=== PATIENT | female | born 1995 | race Asian ===

== ENCOUNTER 2017-06-14 21:38 | Inpatient (IN) | payer SELFPAY ==
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
[2017-06-14] MEDS ORDERED: Triple Antibiotic 0.94 gm Pkt TP STA (22:23)
[2017-06-14] MEDS ORDERED: Sodium Chloride 0.9% 1,000 ML IV ONE (22:27)
[2017-06-14] MEDS ORDERED: Triple Antibiotic 0.94 gm Pkt TP ONE (22:30)
[2017-06-14 22:56] LABS: ALB/GLOB RATIO 1.5 (1.0-1.8); ALBUMIN 4.3 gm/dL (3.7-5.3); ALKALINE PHOSPHATASE 63 U/L (34-104); AMYLASE SERUM 60 U/L (29-103); ANION GAP 12.2 (7.0-16.0); BILIRUBIN,TOTAL 0.5 mg/dL (0.3-1.0); BUN - UREA NITROGEN 13 mg/dL (7-25); CALCIUM SERUM 9.2 mg/dL (8.6-10.3); CARBON DIOXIDE 19.2 mEq/L (21.0-31.0); CHLORIDE 106 mEq/L (98-107); CREATININE - SERUM 0.7 mg/dL (0.6-1.2); GFR AFRICAN-AMERICAN > 60.0 ml/min (>90); GFR NON AFRICAN-AMERICAN > 60.0 ml/min; GLUCOSE 104 mg/dL (70-105); LIPASE 26 U/L (11-82); POTASSIUM SERUM 3.4 mEq/L (3.5-5.1); SGOT 18 U/L (13-39); SGPT/ALT 15 U/L (7-52); SODIUM SERUM 134 mEq/L (136-145); TOTAL PROTEIN,SERUM 7.1 gm/dL (6.0-8.3)
[2017-06-14 23:02] LABS: % BASOPHILS 1.6 % (0.0-2.0); % EOSINOPHILS 0.9 % (0.0-5.0); % LYMPHOCYTES 8.7 % (20.0-50.0); % MONOCYTES 5.5 % (2.0-10.0); % NEUTROPHILS 83.3 % (40.0-80.0); BASOPHILE ABSOLUTE 0.2 Th/cumm (0-0.2); EOSINOPHILE ABSOLUTE 0.1 Th/cmm (0.1-0.4); HEMATOCRIT 39.6 % (41.0-60); HEMOGLOBIN 13.3 gm/dL (12-16); LYMPHOCYTE ABSOLUTE 1.3 Th/cmm (1.5-3.0); MEAN CELL VOLUME 85.3 fl (81-100); MEAN CORPUSCULAR HEMOGLOBIN 28.6 pg (27.0-31.0); MEAN CORPUSCULAR HGB CONC 33.5 pg (28.0-36.0); MEAN PLATELET VOLUME 7.4 fl; MONOCYTE ABSOLUTE 0.8 Th/cmm (0.3-1.0); NEUTROPHILE ABSOLUTE 12.5 Th/cmm (1.8-8.0); PLATELET COUNT 371 Th/cmm (150-400); RED BLOOD COUNT 4.64 Mil/cmm (3.80-5.10); RED CELL DISTRIBUTION WIDTH 13.3 % (11.5-20.0)
[2017-06-14 23:03] LABS: INR 0.92 (0.5-1.4); PROTHROMBIN TIME (TEST) 9.6 SECONDS (9.5-11.5)
[2017-06-14 23:05] LABS: HCG QUANT < 1 mIU/mL (0-0)
[2017-06-14 23:07] LABS: WHITE BLOOD COUNT 14.9 Th/cmm (4.8-10.8)
[2017-06-15] MEDS ORDERED: Potassium Chloride 20 mEq ER Tab PO ONE ×2 (00:05)
[2017-06-15 02:28] LABS: URINE MICROSCOPIC INDICATED? YES; URINE SOURCE CLEAN C
[2017-06-15 02:33] LABS: URINE BILIRUBIN SMALL (NEGATIVE); URINE BLOOD NEGATIVE (NEGATIVE); URINE GLUCOSE (UA) NEGATIVE (NEGATIVE); URINE KETONE NEGATIVE (NEGATIVE); URINE LEUKOCYTE ESTERASE NEGATIVE (NEGATIVE); URINE NITRATE NEGATIVE (NEGATIVE); URINE PH 5.5 (4.6 - 8.0); URINE PROTEIN TRACE mg/dL (NEGATIVE); URINE UROBILINOGEN 0.2 E.U./dL (0.2 - 1.0)
[2017-06-15 02:50] LABS: URINE CLARITY HAZY (CLEAR); URINE COLOR YELLOW
[2017-06-15 02:51] LABS: URINE BACTERIA NONE SEEN /hpf (NONE SEEN); URINE EPITHELIAL CELLS FEW /lpf (FEW); URINE RBC 0-2 /hpf (0-5); URINE WBC 0-2 /hpf (0-5)
[2017-06-15 02:56] LABS: AMPHETAMINE URINE POSITIVE (NEGATIVE); BARBITURATES URINE NEGATIVE (NEGATIVE); COCAINE METABOLITE QUAL URINE NEGATIVE (NEGATIVE); METHAMPHETAMINES QUAL URINE POSITIVE (NEGATIVE); PHENCYCLIDINE (PCP) URINE NEGATIVE (NEGATIVE)
[2017-06-15 02:57] LABS: BENZODIAZEPINES QUAL URINE NEGATIVE (NEGATIVE); CANNABINOID THC POSITIVE (NEGATIVE); METHADONE URINE NEGATIVE (NEGATIVE); OPIATES (MORPHINE) QUAL. URINE NEGATIVE (NEGATIVE); TRICYCLICS (TCA) QUAL. URINE NEGATIVE (NEGATIVE)
[2017-06-15] MEDS ORDERED: 0.9% NS w/40 mEq KCL 1,000 ML IV ONE (03:15)
[2017-06-15 05:34] VITALS: BP 108/58
[2017-06-15 06:40] LABS: % EOSINOPHILS 1.6 % (0.0-5.0); % LYMPHOCYTES 10.8 % (20.0-50.0); % NEUTROPHILS 82.6 % (40.0-80.0); EOSINOPHILE ABSOLUTE 0.2 Th/cmm (0.1-0.4); HEMATOCRIT 40.1 % (41.0-60); LYMPHOCYTE ABSOLUTE 1.3 Th/cmm (1.5-3.0); MEAN CORPUSCULAR HGB CONC 32.5 pg (28.0-36.0); MEAN PLATELET VOLUME 7.5 fl; MONOCYTE ABSOLUTE 0.6 Th/cmm (0.3-1.0); NEUTROPHILE ABSOLUTE 9.5 Th/cmm (1.8-8.0); PLATELET COUNT 342 Th/cmm (150-400); RED BLOOD COUNT 4.66 Mil/cmm (3.80-5.10); RED CELL DISTRIBUTION WIDTH 13.2 % (11.5-20.0)
[2017-06-15 06:42] LABS: WHITE BLOOD COUNT 11.6 Th/cmm (4.8-10.8)
[2017-06-15 07:02] LABS: ALB/GLOB RATIO 1.6 (1.0-1.8); ALBUMIN 4.1 gm/dL (3.7-5.3); ALKALINE PHOSPHATASE 63 U/L (34-104); ANION GAP 11.4 (7.0-16.0); BILIRUBIN,TOTAL 0.6 mg/dL (0.3-1.0); BUN - UREA NITROGEN 10 mg/dL (7-25); CALCIUM SERUM 8.9 mg/dL (8.6-10.3); CARBON DIOXIDE 23.4 mEq/L (21.0-31.0); CHLORIDE 107 mEq/L (98-107); CREATININE - SERUM 0.8 mg/dL (0.6-1.2); GFR AFRICAN-AMERICAN > 60.0 ml/min (>90); GFR NON AFRICAN-AMERICAN > 60.0 ml/min; GLUCOSE 101 mg/dL (70-105); POTASSIUM SERUM 3.8 mEq/L (3.5-5.1); SGOT 18 U/L (13-39); SGPT/ALT 14 U/L (7-52); SODIUM SERUM 138 mEq/L (136-145); TOTAL PROTEIN,SERUM 6.6 gm/dL (6.0-8.3)
--- NOTE | 2017-06-15 07:55 | Diagnostic Imaging Report ---
CT scan of the abdomen and pelvis without intravenous contrast History: Pain Total DLP equals 415 CTDI equals 8.1 Axial sections were obtained from the xiphoid process down to the pubic symphysis. The liver demonstrates a normal size and contour. No focal lesions are seen. The spleen appears normal. No abnormalities are seen in the region of the pancreas. The kidneys appear normal bilaterally. The stomach is significantly distended. There is evidence of for distention of small bowel loops with air-fluid levels considered bowel obstruction versus pelvic ileus. The appendix is intact. No free air appreciated. The exam of the pelvis demonstrates preservation of normal fat planes. No abnormal soft tissue masses. No abnormal fluid collections. Impression: 1. Significant distention of the stomach with the food content and air. 2. Small bowel obstruction versus pelvic ileus. 3. Somewhat prominent uterus.
--- NOTE | 2017-06-15 07:57 | Diagnostic Imaging Report ---
CT scan cervical spine History: Pain Total DLP equals 476 CTDI equals 8.7 Axial sections were obtained through the cervical spine region. Additional sagittal and coronal reformatted images are provided. No focal bony lesions are seen. Specifically, no fractures are identified. There is limited visualization of the margins of the cervical spinal cord. No obvious extradural soft tissue abnormalities are seen. The prevertebral soft tissues appear normal. Impression: No acute abnormalities.
--- NOTE | 2017-06-15 08:01 | Diagnostic Imaging Report ---
Exam: Left elbow HISTORY: Pain Findings: Multiple views of left elbow joint reviewed. The study demonstrates no evidence of fracture dislocation or joint effusion. The radial head is intact. IMPRESSION: Normal examination left elbow joint.
[2017-06-15] MEDS: 0.9% NS w/40 mEq KCL 1,000 ML IV SCH (12:34)
--- NOTE | 2017-06-15 14:18 | Diagnostic Imaging Report ---
CT scan facial bones without intravenous contrast HISTORY: Pain Total DLP equals 230 CTDI equals 16.2 Axial sections were obtained through the facial bones. Additional coronal and sagittal reformatted images are provided. The exam demonstrates retention of normal bony margins about the orbits. No fractures. The zygomatic arches are intact. The pterygoid plates are intact. Nasal bones appear normal. The inferior portion of the mandible is not included on the examination. IMPRESSION: 1. No acute abnormalities (lower portion of the mandible is not included on the exam).
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
[2017-06-16] MEDS: 0.9% NS w/40 mEq KCL 1,000 ML IV SCH (08:34)
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
== END 2017-06-16 14:09 | disposition home or self-care (01) | DRG 914 ==
LOC: ER 21:38 → MSI 06-15 04:15
PROVIDERS: ADMIT Family Medicine; ATTEND Family Medicine
DX: S09.90XA Unspecified injury of head, initial encounter (principal); S05.12XA Contusion of eyeball and orbital tissues, left eye, initial encounter; E87.6 Hypokalemia; E86.0 Dehydration; Z59.0 Homelessness; R11.2 Nausea with vomiting, unspecified; F15.10 Other stimulant abuse, uncomplicated; F12.10 Cannabis abuse, uncomplicated; R45.6 Violent behavior; R19.7 Diarrhea, unspecified; F17.210 Nicotine dependence, cigarettes, uncomplicated; W50.0XXA Accidental hit or strike by another person, initial encounter; Y93.89 Activity, other specified; Y92.89 Other specified places as the place of occurrence of the external cause; Y99.8 Other external cause status
CPT/HCPCS: 36415-UA; 70486-TC; 72125-TC; 73080-TC-LT; 80053-TC; 80307; 81001-TC; 82150-TC; 83605; 83690-TC; 84702-TC; 85025-TC; 85610-TC; 87230-TC; 96374; C9113; J1885; J2405; J3480; J7030; Z7610

== ENCOUNTER 2017-06-26 18:26 | Emergency (ER) | payer SELFPAY ==
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
== END 2017-06-26 21:15 | disposition home or self-care (01) ==
LOC: ER 18:26
DX: S51.851A Open bite of right forearm, initial encounter (principal); S91.051A Open bite, right ankle, initial encounter; W54.0XXA Bitten by dog, initial encounter; Y93.89 Activity, other specified; Y92.89 Other specified places as the place of occurrence of the external cause; Y99.8 Other external cause status
CPT/HCPCS: 99284; 12002; 90715; 96372; J0696; Z7502